=== PATIENT | male | born 1950 | race Caucasian/White ===

== ENCOUNTER → 2022-06-07 10:28 | Outpatient (CLI) | payer MEDICARE, OTHER, SELFPAY ==
--- NOTE | 2022-06-07 10:34 | DI.RAD.S_ITS ---
PROCEDURE: XR CERVICAL SPINE 4V OR 5V INDICATIONS: NECK PAIN TECHNIQUE: 5 views of the cervical spine acquired. COMPARISON: None. FINDINGS: Bones: No fractures or dislocations to the C7-T1 level. Straightening of the normal cervical lordosis, a finding which can be seen in the setting of muscle strain and/or spasm. 2 mm anterolisthesis C3 on C4, 2 mm retrolisthesis C5 on C6, likely degenerative. Moderate-severe multilevel disc height loss and endplate spurring, most pronounced at the mid-lower cervical spine. Facet degenerative changes also demonstrated. On oblique images, there are multiple levels of mild bony neural foraminal narrowing. Soft tissues: No prevertebral soft tissue swelling. IMPRESSION: Moderate-severe multilevel degenerative changes of the cervical spine. Dictated by: Tommy Rangel M.D. on 06/07/2022 at 14:07 Approved by: Tommy Rangel M.D. on 06/07/2022 at 14:13
== END ==
PROVIDERS: PCP Nurse Practitioner Family; Referring Provider Physical Medicine & Rehabilitation; Visit Provider Physical Medicine & Rehabilitation
DX: M47.22 Other spondylosis with radiculopathy, cervical region (principal); M54.2 Cervicalgia; G62.9 Polyneuropathy, unspecified; M17.12 Unilateral primary osteoarthritis, left knee; Z96.651 Presence of right artificial knee joint
CPT/HCPCS: 72050; 99214

== ENCOUNTER → 2022-07-25 11:01 | Outpatient (CLI) | payer MEDICARE, OTHER, SELFPAY ==
[2022-07-25 12:26] LABS: COVID19 -Nasal RAPID Negative (Negative)
== END ==
PROVIDERS: PCP Nurse Practitioner Family; Visit Provider Physical Medicine & Rehabilitation
DX: Z20.822 Contact with and (suspected) exposure to COVID-19 (principal)
CPT/HCPCS: 87635; C9803

== ENCOUNTER → 2022-09-06 08:29 | Outpatient (CLI) | payer MEDICARE, OTHER, SELFPAY ==
[2022-09-06 10:31] LABS: Add Manual Diff / Slide Review NO; Basophils Absolute Auto 0 /uL (0-100); Basophils Percent Auto 0.5 % (0-2); Eosinophils Absolute Auto 200 /uL (0-450); Eosinophils Percent Auto 2.9 % (2-4); Hematocrit 43.6 % (41-53); Hemoglobin 14.4 g/dL (13.5-17.5); Lymphocytes Absolute Auto 1500 /uL (1100-4500); Lymphocytes Percent Auto 26.9 % (25-40); Mean Corpuscular HGB Conc 33.1 % (30-36); Mean Corpuscular Hemoglobin 33.7 PG (26-34); Mean Corpuscular Volume 101.5 fL (80-100); Monocytes Absolute Auto 700 /uL (0-900); Neutrophils Absolute Auto 3100 /uL (1500-7000); Neutrophils Percent Auto 56.7 % (50-75); Platelet Count 211 X10^3/uL (150-400); Red Blood Cell Count 4.29 X10^6/uL (4.5-5.9); Red Cell Distribution Width 14.3 % (11.6-14.8); White Blood Cell Count 5.4 X10^3/uL (4.5-11.0)
[2022-09-06 11:19] LABS: Hemoglobin A1C% w Est Avg Glu 5.7 % (4.0-6.0)
[2022-09-06 11:37] LABS: BUN Creatinine Ratio 22.1 (6-22); Blood Urea Nitrogen 31 mg/dL (9-20); Calcium 9.3 mg/dL (8.4-10.2); Carbon Dioxide 26 mmol/L (22-32); Chloride 103 mmol/L (98-107); Estimated Glomerular Filt Rate 53 mL/min (>60); Glucose 93 mg/dL (80-110); HEMOLYSIS < 15 (0-50); Sodium 140 mmol/L (137-145)
== END ==
LOC: RESP 08:32 → LAB 08:33
PROVIDERS: PCP Nurse Practitioner Family; Referring Provider Orthopaedic Surgery; Visit Provider Orthopaedic Surgery
DX: Z01.818 Encounter for other preprocedural examination (principal); R73.9 Hyperglycemia, unspecified; Z01.812 Encounter for preprocedural laboratory examination
CPT/HCPCS: 36415; 80048; 83036; 85025

== ENCOUNTER 2022-09-13 08:01 | Day surgery (SDC) | payer MEDICARE, OTHER, SELFPAY ==
[2022-09-06 12:56] VITALS: BMI 36.6
[2022-09-13 08:32] VITALS: BMI 36.7
[2022-09-13 08:44] LABS: COVID19 -Nasal RAPID POSITIVE (Negative)
== END 2022-09-13 09:00 | disposition home or self-care (01) ==
LOC: OR 08:03 → AC 09:23 → OR 13:58
PROVIDERS: PCP Nurse Practitioner Family; Referring Provider Nurse Practitioner Family; Visit Provider Orthopaedic Surgery
DX: M17.12 Unilateral primary osteoarthritis, left knee (principal); Z53.09 Procedure and treatment not carried out because of other contraindication; U07.1 COVID-19
CPT/HCPCS: 27447; 87635; C9803

== ENCOUNTER → 2022-11-21 14:28 | Outpatient (CLI) | payer MEDICARE, OTHER, SELFPAY ==
[2022-11-21 15:21] LABS: Add Manual Diff / Slide Review NO; Basophils Absolute Auto 0 /uL (0-100); Basophils Percent Auto 0.5 % (0-2); Eosinophils Absolute Auto 100 /uL (0-450); Eosinophils Percent Auto 1.9 % (2-4); Hematocrit 44.3 % (41-53); Hemoglobin 14.4 g/dL (13.5-17.5); Lymphocytes Absolute Auto 1900 /uL (1100-4500); Lymphocytes Percent Auto 33.9 % (25-40); Mean Corpuscular HGB Conc 32.6 % (30-36); Mean Corpuscular Hemoglobin 33.2 PG (26-34); Mean Corpuscular Volume 101.8 fL (80-100); Monocytes Absolute Auto 700 /uL (0-900); Monocytes Percent Auto 12.1 % (3-14); Neutrophils Absolute Auto 2900 /uL (1500-7000); Neutrophils Percent Auto 51.6 % (50-75); Platelet Count 226 X10^3/uL (150-400); Red Blood Cell Count 4.35 X10^6/uL (4.5-5.9); Red Cell Distribution Width 14.6 % (11.6-14.8); White Blood Cell Count 5.7 X10^3/uL (4.5-11.0)
[2022-11-21 15:34] LABS: BUN Creatinine Ratio 17.2 (6-22); Blood Urea Nitrogen 27 mg/dL (9-20); Calcium 9.1 mg/dL (8.4-10.2); Carbon Dioxide 23 mmol/L (22-32); Chloride 105 mmol/L (98-107); Estimated Glomerular Filt Rate 46 mL/min (>60); Glucose 103 mg/dL (80-110); HEMOLYSIS < 15 (0-50); Potassium 4.4 mmol/L (3.4-5.1); Sodium 137 mmol/L (137-145)
== END ==
PROVIDERS: PCP Nurse Practitioner Family; Referring Provider Orthopaedic Surgery; Visit Provider Orthopaedic Surgery
DX: Z01.812 Encounter for preprocedural laboratory examination (principal); M25.562 Pain in left knee
CPT/HCPCS: 36415; 80048; 85025

== ENCOUNTER → 2022-12-04 09:59 | Outpatient (CLI) | payer MEDICARE, OTHER, SELFPAY ==
[2022-12-04 10:27] LABS: COVID19 -Nasal RAPID Negative (Negative)
== END ==
PROVIDERS: PCP Nurse Practitioner Family; Referring Provider Orthopaedic Surgery; Visit Provider Orthopaedic Surgery
DX: Z20.822 Contact with and (suspected) exposure to COVID-19 (principal)
CPT/HCPCS: 87635; C9803

== ENCOUNTER 2022-12-07 08:00 | Observation (INO) | payer MEDICARE, OTHER, SELFPAY ==
[2022-11-30 09:01] VITALS: BMI 37.7
[2022-12-06] VITALS (15 sets, daily range): BP systolic 106–174; BP diastolic 63–84; PULSE 47–64; RESP 9–20; TEMP 36–36.9; O2SAT 45–98; BMI 37.7
--- NOTE | 2022-12-06 08:24 | DI.RAD.S_ITS ---
PROCEDURE: XR KNEE LT 1TO2V INDICATIONS: post op total knee TECHNIQUE: 2 view(s) of the knee acquired. COMPARISON: [facility], , KNEE 1-2 VIEWS RIGHT, 03/05/2018, 15:53. FINDINGS: Bones: Patient is status post knee joint arthroplasty. Hardware components are in expected positions. Visualized bony structures are intact. Soft tissues: Overlying postoperative changes are noted. IMPRESSION: Expected immediate postoperative appearance, status post total left knee arthroplasty. Dictated by: Thor Huggins M.D. on 12/06/2022 at 16:59 Approved by: Thor Huggins M.D. on 12/06/2022 at 16:59
--- NOTE | 2022-12-06 10:42 | PM.PREOP ---
Pre-operative Note COVID-19 COVID-19 status: Negative Result date/Date tested (Pos, Neg/Pending): 12/04/22 Interval Note History & Physical reviewed/Exam performed by Physician: Yes Changes to H&P: No
--- NOTE | 2022-12-06 11:23 | SUR.PREOP ---
Dr Covington Notified in person of pt use of Nitro SL 4-5 days ago for chest pain which resolved. No current chest pain. Had not used previously for at least 6 months.
[2022-12-06] MEDS: PREGABALIN 75 MG CAPSULE PO (11:45)
[2022-12-06] MEDS: ACETAMINOPHEN 325 MG TABLET 975 MG PO (11:45)
[2022-12-06] MEDS: CELECOXIB 200 MG CAPSULE PO (11:45)
[2022-12-06] MEDS: LACTATED RINGERS 1,000 ML 84 ML IV ×2 (11:48→14:21)
[2022-12-06] MEDS: CEFAZOLIN 2 GM/100 ML PREMIX 100 ML IV ×2 (13:00→20:27)
[2022-12-06] MEDS: TRANEXAMIC ACID 1,000 MG VIAL 1000 MG INJ ×2 (13:10→14:10)
--- NOTE | 2022-12-06 13:25 | SUR.OPER ---
Supine on padded OR bed, head on pillow, arms secured on padded arm boards at <90 degrees abduction, legs uncrossed, safety belt at abdomen, tape over blanket over lower right leg. Left leg secured in [employer] positioner with foam padding and secured with coban
[2022-12-06] MEDS: BUPIVACAINE LIPOSOME 266 MG/20 ML VIAL INJ (13:35)
[2022-12-06] MEDS: MORPHINE 4 MG/ML INJ INJ (13:35)
[2022-12-06] MEDS: BUPIVACAINE 0.5% W/ EPI (PF) 30 ML VIAL INJ (13:36)
--- NOTE | 2022-12-06 14:38 | P.OP_ITS ---
Operative Date/Time/Diagnoses Date of procedure: 12/06/22 Time of procedure: 14:38 Pre-op diagnosis: Left knee osteoarthritis Post-op diagnosis: same Procedure & Clinicians Procedure: Left total knee replacement Same procedure as scheduled: Yes Indications: The patient has had progressively worsening left knee pain with radiographic changes consistent with arthritis. Non-operative management has failed and the patient has requested total knee replacement. The risks, benefits and alternatives to surgery were discussed with the patient prior to proceeding. Risks discussed included, but were not limited to, failure to relieve pain, stiffness, infection, nerve damage, deep venous thrombosis, pulmonary embolism, stroke, coma, heart attack, permanent paralysis and , as well as the potential need for eventual revision of the prosthetic. Division Order Technician: Stalin Williamson Click Yes if Unassisted: No Anesthesia Type: General, Spinal and Local Operative Notes Findings: Significant medial and moderate patellofemoral osteoarthritis with relative preservation of the lateral compartment. Closure Type: primary Specimen(s): none sent Prosthetic devices, grafts, tissues, transplants, or devices: Implants used in this procedure were manufactured by the [employer] and [employer] and included the BCS II Journey total knee replacement with a size 7 left Oxinium femoral component, size 6 left non porous tibial base plate with a 10 mm cross-linked polyethylene insert and a 35 mm oval Danae II patella Applied: implant(s) Estimated Blood Loss (mL): 25 Blood products transfused: none Tourniquet time (min): 50 Procedure in detail: The patient was seen in the pre-operative area, where the left knee was identified as the operative site and this was marked with my initials. The patient received pre-operative antibiotics, and was taken to the operating room and placed on the operative table in the supine position. After satisfactory anesthesia, a disc pad grinder out was performed. The left leg was encircled with a tourniquet about the proximal thigh, and the leg was prepared from the toes to the tourniquet with ChloroPrep in the usual fashion and draped through sterile drapes. The leg was elevated and exsanguinated with Eschmark bandage and the tourniquet inflated to 250 mmHg pressure. The knee was approached through an approximately 18 cm incision centered over the patella and carried into the knee through a medial parapatellar arthrotomy. The anterior osteophytes and soft tissues were removed. The rotational landmarks of Mcleod's line and the transepicondylar axis were marked on the femur with electrocautery, and intramedullary guide holes for the femur and tibia were created. The distal femoral cut was made in 6 degrees of valgus using the intramedullary guide at the primary cut setting. The proximal tibial cut was then made using the intramedullary guide, taking 9 mm of bone off the less involved side. The extension gap was checked and the rotation of the femoral component confirmed with the gap balancing blocks. The anterior, posterior and chamfer cuts were then made. The posterior osteophytes and soft tissues were then removed. The posterior capsule was injected with part of a mixture of 60 ml 0.25% Marcaine mixed with 20 ml Exparel and 4 mg of morphine for post-operative pain control. The remainder of this mixture was injected into the capsule and subcutaneous tissues during cement curing. The tibia was prepared with the rotation set by an extra medullary guide. Trial tibial and femoral components were then placed and the intercondylar notch cut through the femoral trial. Range of motion was 0-135 degrees, with good stability throughout the range. The patella was then cut to accommodate the patellar prosthetic. There was no need for a lateral release. The trials were then removed, and the femoral hole plugged with a bone plug. The bone was prepared with pulsatile lavage, and dried with a sponge. Cement was applied and the final prosthetics placed. Excess cement was removed during and after cement curing. After confirming there was no extruded cement posteriorly, the final tibial insert was placed. The knee was copiously irrigated and the tourniquet deflated. Hemostasis was obtained. The capsule was closed with interrupted # 2 polyester sutures. The subcutaneous layer was closed with 3-0 Vicryl, and the skin with a running 3-0 V-Lock suture and Dermabond. An Aquacel Ag dressing was applied and the patient was taken to recovery having tolerated the procedure well. The services of a skilled surgical supplies sterilizer were necessary in this procedure to provide positioning, exposure and retraction to prevent damage to vital structures. Without the services of Mr. Williamson, the surgery could not be perfo rmed in a safe, expedient manner. Complications: none Post-operative Condition: stable Disposition: PACU Plan for aftercare: The patient will be maintained on a standard total knee replacement protocol with weight bearing as tolerated. The patient will receive aspirin and sequential compression devices for DVT prophylaxis. The patient will be discharged home when safe for the home environment.
[2022-12-06] MEDS: GABAPENTIN 300 MG CAPSULE 600 MG PO ×2 (17:49→20:27)
[2022-12-06] MEDS: ACETAMINOPHEN 325 MG TABLET 650 MG PO ×2 (17:49→23:53)
[2022-12-06] MEDS: LACTATED RINGERS 1,000 ML 100 ML IV (18:29)
[2022-12-06] MEDS: AMLODIPINE 5 MG TABLET 2.5 MG PO (20:27)
[2022-12-06] MEDS: ASPIRIN EC 81 MG TABLET PO (20:27)
[2022-12-07 04:10] VITALS: BP 157/68; PULSE 62; RESP 19; TEMP 36.8; O2SAT 92
[2022-12-07] MEDS: CEFAZOLIN 2 GM/100 ML PREMIX 100 ML IV (04:45)
[2022-12-07] MEDS: ACETAMINOPHEN 325 MG TABLET 650 MG PO ×2 (05:40→12:07)
[2022-12-07 05:54] LABS: Hemoglobin 12.9 g/dL (13.5-17.5)
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
[2022-12-07 07:43] VITALS: BP 128/60; PULSE 64; RESP 18; TEMP 36.7; O2SAT 94
[2022-12-07] MEDS: DOCUSATE 100 MG CAPSULE PO (08:40)
[2022-12-07] MEDS: ASPIRIN EC 81 MG TABLET PO (08:41)
[2022-12-07] MEDS: GABAPENTIN 300 MG CAPSULE 600 MG PO ×2 (08:41→12:08)
[2022-12-07] MEDS: ATORVASTATIN 20 MG TABLET 40 MG PO (08:42)
[2022-12-07] MEDS: METHYLPHENIDATE 5 MG TABLET 20 MG PO (08:50)
[2022-12-07] MEDS: CYANOCOBALAMIN (VITAMIN B-12) 500 MCG TABLET 1000 MCG PO (08:50)
[2022-12-07 08:54] VITALS: BP 128/60
[2022-12-07] MEDS: METOPROLOL ER 25 MG TABLET PO (08:54)
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
--- NOTE | 2022-12-07 09:29 | CM.DANOTE ---
DCP: Case received EMR reviewed, this product development ecologist introduced self to patient was able to obtain information regarding pt's baseline activity prior to surgery, as well as current living situation. DCP's assessment completed with information currently available. Pt came to the hospital for a pre-planned surgery under the care of the orthopedic team. PCP: Jud Ydoer Payor: Medicare Pt had a preplanned Total Knee replacement on 12/06/2022, he has a history of Left Knee Osteoarthritis. He reports that he drives at baseline and that he did not use DME prior to surgery. Pt reports that he lives with his who will assist him at home on discharge. He states that he is set up with [facility] for care when discharged. P: Pt will discharge home with his today pending working with pt. Ana Gamble RN Case Manager Discharge Planning/Care Management CM Discharge Assessment Start: 12/07/22 09:24 Freq: Status: Active Protocol: Document 12/07/22 09:25 JS (Rec: 12/07/22 09:29 [id number]) Discharge Planning Assessment Assigned Ventilator Specialist Ana Gamble RN Case Manager Advance Directives? Yes Advance Directives on File No History Provided By Patient,Significant Other Has Patient been admitted in last 30 No days? Prior Living Arrangements House Household Members spouse Type of transporation used prior to Drives own vehicle admit Independent with ADL's Yes Is patient alert and oriented? Yes Caregiver for Another No Patient/Family Preference OP PT Therapy Comment Set up with [facility] Barriers to Discharge No Discharge Plan Home Transportation Arrangement to transport pt home Whiteboard Updated in Patient Room with Yes name and ext. # of Ventilator Specialist Review Status In Process Next Review Type Continued Stay Review Pre-Anesthesia Assessment Start: 11/30/22 09:01 Freq: Status: Active Protocol: Document 11/30/22 09:01 CAB (Rec: 11/30/22 09:27 CAB [id number]) Pre-Anesthesia Assessment Preferred Name Pat Patient Information Reviewed Via Phone Assessment Assessment Completed With Patient Diagnostic Results BMP/CMP,CBC,EKG Comment Labs @ [facility], Outside ECG scanned , COVID screen @ [facility] 12/04/22 Primary Care Provider Jud Yoder Seen Specialist in Last 12 Months Yes Specialist Seen Mineral Surveying Technician,Orthopedist Primary Language Azeri Transportation Technician Required No Height 177.8 cm Weight 119.295 kg Body Mass Index (BMI) 37.7 Hearing Ability Normal Visual Impairment No Limitations Visual Assist None Dentition Type Teeth, Natural Present,Teeth, Missing Barriers to Learning None Other Aids No Hx Anesthesia Reactions Yes: Complications w/ narcolepsy, I didn't almost wake up Hx Family Anesthesia Reaction No Hx Malignant Hyperthermia No Hx Blood Transfusions No Hx Blood Transfusion Reaction No Anesthesia Review Requested No alcohol intake never Smoking Status Former smoker how long ago did patient quit smoking Quit 25 years ago Substance Use Type does not use Pain Present Pain Reported Musculoskeletal Symptoms Abnormal Gait,Arthralgias,Back Pain,Difficulty Walking,Joint Pain,Myalgias,Neck Pain History of Falling (Recent or History of Yes ) Patient is completely paralyzed or No completely immobile Mental Status Oriented to own ability Is patient on oxygen? No Does patient have LYNN/SOB Yes: On occasion r/t COPD, Asthma Hx Sleep Apnea No Currently Taking a Beta Shalini Yes: Metoprolol Can You Climb a Flight of Stairs Without No SOB Hx Chest Pain Yes: I've been told it's muscle pain, not heart Hx SOB Yes: On occasion r/t COPD, Asthma Hx Syncope or Dizziness No Mineral Surveying Technician name Dr. Pace Cardiac Testing Yes Hx Pacemaker/ICD No Pacemaker Rep Required? No Diet Type At Home Regular,Low Sodium Dysphagia No Gastrointestinal Symptoms Reflux Urinary Catheter Present No Hx Urinary Self Catheterization No Diabetes No Hx Drug Resistant Organism No Presence of External or Internal Medical Yes: Stent, right knee, bilat Devices eye IOLs Have you had any close contact with No someone diagnosed with COVID-19? Received a COVID vaccine? Yes Received all doses? Yes Marital Status Lives With spouse Current Living Arrangements House Support System Spouse Does the Patient Have Assistance After Yes Surgery Patient Discharge Plan Description Return Home Comment Pt advised overnight length of stay per surgeon Additional comment Lives on [place] Fe[place] Safe in Current Environment Yes Been Physically Hurt or Threatened By a No Person in Current Environment Do you have thoughts of harming yourself None or others? Are you currently considering suicide? No Do you have a plan to hurt yourself or No Plan others? Do You Have Any Spiritual Beliefs That No May Affect Your HC Choices? Do You Have Any Cultural Practices That No May Affect Your HC Choices? Comment LDS Who Can We Speak to About Patient's Care Family, friends Identifying Code for Release of Patient Declines to issue Information Health Care Proxy/Next of Kin Andreia Samuel () Health Care Proxy Emergency Contact Name Andreia Samuel () Emergency Contact Advance Directives? Yes Advance Directives on File No Requested Patient Bring Advanced Yes Directives DOS Power of Inside Wireman Yes Power of Inside Wireman Name Andreia Samuel () Power of Inside Wireman PAC Instructions Durable medical equipment, Medications to take/avoid, Nasal antibiotic,No ETOH/ petroleum product on skin DOS, NPO,Pre-surgical wash,Sensory aids,Sturdy shoes/comfortable clothes,Do not bring valuables and remove jewelry
[2022-12-07] MEDS: OXYCODONE IR 10 MG TABLET PO ×2 (10:23→15:06)
[2022-12-07 10:41] VITALS: BP 130/66
[2022-12-07 12:15] VITALS: BP 165/86; PULSE 78; RESP 18; TEMP 36.8; O2SAT 96
--- NOTE | 2022-12-07 14:45 | PT.IPTN ---
Current Diagnoses Unilateral primary osteoarthritis, left knee (12/07/22) Presence of unspecified artificial knee joint (12/07/22) Surgery Performed Operation Date: 12/06/22 11:15 Actual Procedures p Total Knee Arthroplasty(Left) - Andreas Potter MD Physical Therapy Treatment Note M2 PT-IP Current Condition Start: 12/07/22 13:16 Freq: NEEDED Status: Discharge Protocol: Document 12/07/22 14:10 SP (Rec: 12/07/22 20:15 SP [id number]) Physical Therapy Current Condition Current Condition Evaluation Date 12/07/22 Treatment Diagnosis s/p L TKA; difficulty in walking Onset Date 12/06/22 M3 PT-IP Subjective Start: 12/07/22 13:16 Freq: NEEDED Status: Discharge Protocol: Document 12/07/22 14:10 SP (Rec: 12/07/22 20:15 SP [id number]) Subjective Physical Therapy Visit Type Type Initial Evaluation Visit Start Time 14:10 Visit Stop Time 14:45 Total Visit Minutes 35 Notes present and complete caregiver training, including donning gait belt and all physical needs in reach. VItals (hypertensive, notified nursing concern): Seated in chair rested: RUE automated x3 total: BP 178 /89 HR 67, BP 174/86, RUE 183/ 96, L forearm 173/83. Nursing stated ok to mobilize. Number of EDUCATION FACULTY MEMBER Visits 1 Physical Therapy Visit Comments Patient Comments agreeable to do PT Patient Goals return home with spouse this afternooon, early evening ferry. Therapy Pain Assessment Pain When Pain Assessed During Mobility Pain Present Pain Present Pain Reported Location Left Knee Intensity 6 Scale Used with mobility Description With Movement Pain Behaviors Facial Grimacing Pain Management Techniques Distraction,Elevation, Modification of Treatment,Re- positioning,Timing of Activity with Medications M4 PT-IP Mobility and Gait Start: 12/07/22 13:16 Freq: NEEDED Status: Discharge Protocol: Document 12/07/22 14:10 SP (Rec: 12/07/22 20:15 SP [id number]) PT-Bed Mobility Assessment Supine to Sit Supine to Sit Standby Assistance Sit to Supine Sit to Supine Standby Assistance Scooting Scooting to Edge of Bed Independent PT-Transfer Assessment Sit to and From Stand Sit to and from Stand Contact Guard Assistance, Minimal Assistance,1 Person Assistance,Use of Upper Extremities Equipment Transfer Assistive Device Gait Belt,Front Wheeled Walker Orthotic/Prosthetic Devices or Brace: No Transfers Transfer Destination Bed,Chair Transfer Technique pt ambulated using fww Transfer Ability Level of Assist Contact Guard Assistance, Minimal Assistance,1 Person Assistance,Use of Upper Extremities Comments Mobility Comments Pt was up in chair when arrived wanted to mobilize in room. donned gait belt. STS cues push from chair arms, full stand w/FWW CG-5%A, cued quad facilitation and hip hinge forward, ed try not use the back legs on chair for safe, some chairs scoot back ( inpt locked), Gait around room step to patterning, cued quad facilitation, upright posturing to improve foot clearance and stride DF/knee flexion swing through for normalizing gait. Improved post cues. Pt Mod BUE WB on FWW, at times scoots FWW quickly and starts to tip. Cued safety posturing and safety transition pivots, contact FWW and cued pt slower pacing forward/turns around end bed and pivot back fully to chair CGA. Sit EOB, cued reach back sit, Completed sit<>supine 10% A LLE into bed. Instructed no pillows under L knee to allow extension ROM. COmpleted post op ex: AP, quad set, heel slide approx 80d eg AROM, unable SLR. Pt returned to sitting EOB SBA and SPT w/ FWW back to chair CGA. Pt is ok return home with assist when medically cleared. Suggested use of urinal at night for not safety without BSC and both agreed. Pt is already set up with outpt therapy next week. Gait Assessment Gait Gait Assistance Required: Contact Guard Assist,Minimum Assistance,1 Person Assist Distance (Feet) 30 Able to Maintain Weight Bearing Status Yes During Gait Assistive Devices Assistive Device Gait Belt,Front Wheeled Walker Orthotic/Prosthetic Devices or Brace: No Gait Deviations General Gait Pattern Antalgic,Decreased Stride Length,Decreased Feet Clearance,Flexed Trunk,Step-to Gait Factors Limiting Gait Function Factors Limiting Gait Function Decreased Activity Tolerance, Decreased Strength,Limited Range of Motion,Pain,Poor Balance,Poor Safety Awareness Comments Gait Comments see mobility comments Stair Climbing Assessment Comments Stair Climbing Comments no stairs need to assess PT-Balance Assessment Sitting Balance and Reactions Static Sitting Balance Ability Normal Dynamic Sitting Balance Ability Good Standing Balance and Reactions Static Standing Balance Ability Good Dynamic Standing Balance Ability Fair Device Used FWW M5 PT-IP Objective Assessments Start: 12/07/22 13:16 Freq: NEEDED Status: Discharge Protocol: Document 12/07/22 09:25 AB (Rec: 12/07/22 13:53 AB [id number]) Orientation Orientation/Cognition Level of Alertness Alert Orientation Name,Situation Language Function Ability No Deficits Noted Safety Awareness Decreased Safety Awareness Memory Description No Deficits Noted Gross Range of Motion Lower Extremity ROM Assessment Left Impaired Impairments L knee flexion: ~ 30 deg Strength Lower Extremity Strength Assessment Left Impaired Hip 3+/5 Knee 3+/5 Sensation Assessment Sensation Gross Sensation WNL Muscle Tone Muscle Tone WNL Yes M6 PT-IP Treatment Start: 12/07/22 13:16 Freq: NEEDED Status: Discharge Protocol: Document 12/07/22 14:10 SP (Rec: 12/07/22 20:15 SP [id number]) Physical Therapy Treatment Exercises Exercises Ankle Pumps,Quad Sets,Heel Slides,Passive Knee Extension Hang,Seated Knee Flexion/ Extension Knee ROM Measurement 80 deg L knee AROM, cued slow and not >90 deg Education Education Provided Precautions,Weight Bearing Status,Post-Op Packet,Safety Other Treatments Other Treatment Performed In standing wt shift then january pre gait mobility. M7 PT-IP Assessment and Plan Start: 12/07/22 13:16 Freq: NEEDED Status: Discharge Protocol: Document 12/07/22 14:10 SP (Rec: 12/07/22 20:15 SP [id number]) PT Summary Assessment and Plan Potential Rehabilitation Potential Fair Status of Condition at Evaluation Evolving Summary Impairments Pain,ROM,Strength,Balance, Coordination,Sensation,Tone, Cognition,Bed Mobility, Transfers,Gait,Activity Tolerance Progress Towards Goals Progressing Toward Goals,Slow Progress due to Pain,Slow Progress due to Activity Tolerance Assessment Summary Pt hypertensive, see vitals, notified nursing. SBA bed mob, CG- 5%A during gait w/ FWW, cues proper form L knee flexion and tall posturing, tends to be impulsive pivoting FWW CGA for safety, improve post cues. Pt is ok to return home with 11/06 assist when medically cleared, set up with outpt therapy. Goals Bed Mobility Goal Independent Transfer Goal Independent,Front Wheeled Walker Gait Goal Independent,Front Wheel Walker Gait Distance 150 Days to Meet Goals 5 Frequency of Treatment Frequency Of Treatment Twice a Day Treatment Plan Physical Therapy Treatment Plan Bed Mobility Training,Transfer Training,Gait Training, Therapeutic Exercise,Balance Retraining,Post Op Education, Discharge Planning,Hot or Cold Pack,Neuromuscular Re-ed, Coordination Retraining,Manual Therapy Other Recommendations and Next Treatment Postop ex, recheck ROM, Focus tranfers, gait w/ FWW, balance activities. Weight Bearing Status Weight Bearing Status Weight Bear as Tolerated Allowed Weight Bearing Amount (enter % LLE WBAT or #) (%) Recommendations To Nursing Amount of Assist Needed 1 Person Assist Discharge Recommendations PT Discharge Recommendations Home with 11/06 Assist Available,Outpatient PT Transportation Needs at Discharge Private Vehicle
--- NOTE | 2022-12-07 15:50 | PC.NURSE ---
Pt in satisfactory post op status Med for discomfort per request w/ good relief. Orders for D/C Home instructions given HL D/C'd Pt escorted by staff via W/C to waiting vehicle D/C in stable post op status.
== END 2022-12-07 15:40 | disposition home or self-care (01) ==
LOC: OR 10:33 → AC 10:33
PROVIDERS: Admitting Provider Orthopaedic Surgery; PCP Nurse Practitioner Family; Referring Provider Orthopaedic Surgery; Visit Provider Orthopaedic Surgery
PROC: 0SRD0JZ Replacement of Left Knee Joint with Synthetic Substitute, Open Approach (ICD-10-PCS; CPT 27447; principal; 2022-12-06 11:15)
DX: M17.12 Unilateral primary osteoarthritis, left knee (principal)
CPT/HCPCS: 27447; 36415; 73560; 85014; 85018; 97110; 97162; 97530; C1776; G0378; C1713; C9290; J0690; J1100; J2250; J2270; J2405; J2704; J3010

== ENCOUNTER → 2023-06-08 12:08 | Outpatient (CLI) | payer MEDICARE, OTHER, SELFPAY ==
[2022-12-06 09:18] VITALS: BMI 37.7
[2023-06-08 13:12] LABS: Add Manual Diff / Slide Review NO; Basophils Absolute Auto 0 /uL (0-100); Basophils Percent Auto 0.4 % (0-2); Eosinophils Absolute Auto 100 /uL (0-450); Eosinophils Percent Auto 1.8 % (2-4); Hematocrit 40.8 % (41-53); Hemoglobin 13.9 g/dL (13.5-17.5); Lymphocytes Absolute Auto 1500 /uL (1100-4500); Lymphocytes Percent Auto 31.3 % (25-40); Mean Corpuscular Hemoglobin 34.5 PG (26-34); Mean Corpuscular Volume 101.5 fL (80-100); Monocytes Absolute Auto 500 /uL (0-900); Monocytes Percent Auto 10.1 % (3-14); Neutrophils Absolute Auto 2700 /uL (1500-7000); Neutrophils Percent Auto 56.4 % (50-75); Platelet Count 195 X10^3/uL (150-400); Red Blood Cell Count 4.02 X10^6/uL (4.5-5.9); Red Cell Distribution Width 14.4 % (11.6-14.8); White Blood Cell Count 4.8 X10^3/uL (4.5-11.0)
[2023-06-08 13:26] LABS: BUN Creatinine Ratio 23.3 (6-22); Blood Urea Nitrogen 34 mg/dL (9-20); Calcium 9.1 mg/dL (8.4-10.2); Carbon Dioxide 27 mmol/L (22-32); Chloride 106 mmol/L (98-107); Estimated Glomerular Filt Rate 50 mL/min (>60); Glucose 104 mg/dL (80-110); HEMOLYSIS < 15 (0-50); Potassium 4.5 mmol/L (3.4-5.1); Sodium 139 mmol/L (137-145)
== END ==
PROVIDERS: PCP Family Medicine; Referring Provider Orthopaedic Surgery Orthopaedic Surgery of the Spine; Visit Provider Orthopaedic Surgery Orthopaedic Surgery of the Spine
DX: I10 Essential (primary) hypertension (principal); G89.29 Other chronic pain; Z01.812 Encounter for preprocedural laboratory examination
CPT/HCPCS: 36415; 80048; 85025; 93005

== ENCOUNTER 2023-06-22 08:14 | Inpatient (IN) | payer MEDICARE, OTHER, SELFPAY ==
[2022-12-06 09:18] VITALS: BMI 37.7
[2023-06-19 13:32] VITALS: BMI 38.9
[2023-06-22] VITALS (12 sets, daily range): BP systolic 144–183; BP diastolic 78–94; PULSE 54–94; RESP 12–18; TEMP 36.1–36.9; O2SAT 93–99; BMI 38.9; BMI 39.6
--- NOTE | 2023-06-22 | DI.RAD.S_ITS ---
PROCEDURE: XR CERVICAL SPINE 2V OR 3V INDICATIONS: C4-5 C5-6 ACDF TECHNIQUE: 3 intraoperative low resolution fluoroscopic spot films obtained COMPARISON: [facility], , XR CERVICAL SPINE 4V OR 5V, 06/07/2022, 11:21. FINDINGS: Resolution intraoperative fluoroscopic spot films show some instrumented discectomy and fusion C4-5 and C5-6 as labeled on the films IMPRESSION: Fluoroscopic guidance Approved by: Watson Garcia M.D. on 06/22/2023 at 15:03
[2023-06-22] MEDS: LACTATED RINGERS 1,000 ML 42 ML IV (09:21)
--- NOTE | 2023-06-22 10:12 | PM.PREOP ---
Pre-operative Note COVID-19 Criteria for continued procedure: Expected advancement of disease process, Possibility delay results in more complex future surgery or treatment, Increased loss of function, Continuing or worsening of significant or severe pain, Deterioration of the patient's condition or overall health and Delay expected to result in less-positive ultimate med/surg outcome Interval Note History & Physical reviewed/Exam performed by Physician: Yes Changes to H&P: No
[2023-06-22] MEDS: CEFAZOLIN VIAL 3 GM in SODIUM CHLORIDE 0.9% 100 ML IV (11:00)
--- NOTE | 2023-06-22 11:12 | SUR.OPER ---
Supine on padded OR bed, head on pillow, arms padded on gel pads and papoosed, legs uncrossed, safety belt at thigh, tape over blanket over lower legs.
[2023-06-22] MEDS: BUPIVACAINE 0.25% W/ EPI (PF) 10 ML VIAL 30 ML INJ (11:32)
--- NOTE | 2023-06-22 12:43 | PM.OP.1 ---
Operative Date/Time/Diagnoses Date of procedure: 06/22/23 Time of procedure: 10:40 Pre-op diagnosis: 1. C4-5, C5-6 spinal stenosis 2. Cervical spondylosis with radiculopathy Post-op diagnosis: same Procedure & Clinicians Procedure: 1. C4-5, C5-6 anterior cervical diskectomy and fusion 2. C4-5, C5-6 anterior interbody cage placement 3. C4-5, C5-6 anterior instrumentation with plate and screw placement in C5-C6 and C7 vertebrae 4. Utilization of microsurgical technique and operating microscope Same procedure as scheduled: Yes Indications: Patient has been having chronic neck pain and worsening cervical radiculopathy. Patient failed multiple conservative management with worsening pain weakness and numbness in his upper extremity. Patient has been having difficulty performing activity of daily living. After discussing risks benefits of treatment options, patient elected proceed with surgery. Surgeon: Kirsten Burdick Brokerage Office Manager: Stalin Williamson Click Yes if Unassisted: No Anesthesia Type: General Operative Notes Closure Type: primary Specimen(s): none sent Prosthetic devices, grafts, tissues, transplants, or devices: Globus Extend Plate, Hedron C cages Estimated Blood Loss (mL): 5 Blood products transfused: none Procedure in detail: Patient was seen in the preoperative area. Risks and benefits of the surgery was discussed with the patient. Operative consent was obtained and placed in the chart. Patient was then taken to the operative room. Prophylactic antibiotic was given less than 0.5 hr prior to skin incision. General anesthesia was administered. Patient was placed into a supine position on her radiolucent table. Bilateral shoulders were taped down to allow proper C-arm imaging. Anterior cervical area was prepped and draped in a sterile fashion. Time-out was performed at this time. Using lateral C-arm imaging, the level between C4 and C6 was identified and marked on patient's neck. A oblique incision from midline towards medial border of sternocleidomastoid muscle was made. The platysma muscle was incised in line with skin incision. Metzenbaum scissor was used to develop the plane between the medial border of sternocleidomastoid d and the strap muscles medially. The carotid sheath and its contents were identified and protected behind the hand-held retractor during the entire case. The plane between the carotid sheath and strap muscles was developed with Metzenbaum scissors. Dissection was made down to the level of the anterior cervical fascia. Longus colli muscle was incised on the anterior aspect of vertebral bodies bilaterally from C4-6. Spinal needle was placed into the C5-6 disc space and confirmed with lateral C-arm imaging. Using microsurgical technique and operative microscope, anterior cervical diskectomy was performed at C4-5, C5-6 level. This was done by removing the disc material, removing the anterior and posterior osteophytes posterior longitudinal ligaments along with performing bilateral foraminotomies at both levels. Patient was found to have severe central and foraminal stenosis at both levels. Patient's stenosis was fully decompressed after decompression was completed. After the diskectomy was completed, 2 anterior interbody cages were obtained. The cages were packed with DBM bone grafting material. One cage each along with the bone grafting material was then packed into the interbody spaces from C4-C6 with one cage into each interbody level. After the cages were placed, the anterior cervical plate was stabilized to the C4-6 vertebrae using 2 screws at each each level. Total 6 screws were placed. After confirming placement of the hardware with AP and lateral C-arm imaging, the screws were locked into the plate using the locking mechanism and torque limiting screwdriver. After the hardware was placed and confirmed with AP and lateral C-arm imaging, the wound was irrigated with sterile normal saline. The platysma muscle and the subcutaneous tissue was closed with 2-0 Vicryl. The skin was closed with 4-0 Monocryl and Steri-Strips. Patient tolerated the procedure well. Patient was transferred recovery room in stable condition. There were no complications. The Operation could not have been safely performed without compromising the technical result or length of the procedure, without the assistance of a skilled volunteer services assistant. The volunteer services assistant was medically necessary for proper positioning, retraction and manipulation of instruments, proper exposure, surgical preparation, and manipulation of tissue. Complications: none Post-operative Condition: stable Disposition: PACU Plan for aftercare: Admit to inpatient hospital
[2023-06-22] MEDS: HYDROMORPHONE 2 MG INJ IV ×2 (13:08→13:16)
[2023-06-22] MEDS: ACETAMINOPHEN 325 MG TABLET 650 MG PO ×2 (15:43→20:43)
[2023-06-22] MEDS: LACTATED RINGERS 1,000 ML 125 ML IV (15:43)
[2023-06-22] MEDS: METHYLPHENIDATE 5 MG TABLET 20 MG PO (15:43)
--- NOTE | 2023-06-22 15:43 | PT-IP ANOTE ---
PT checks on pt for day of surgery evaluation and pt is sleeping and too lethargic to participate per nsg and PT assessment. Will con't efforts next date.
[2023-06-22] MEDS: GABAPENTIN 300 MG CAPSULE 600 MG PO ×2 (18:19→20:40)
[2023-06-22] MEDS: CEFAZOLIN 2 GM/100 ML PREMIX 100 ML IV (18:37)
[2023-06-22] MEDS: AMLODIPINE 5 MG TABLET 2.5 MG PO (20:38)
[2023-06-23 02:42] VITALS: BP 153/77; PULSE 69; RESP 20; TEMP 36.5; O2SAT 96
[2023-06-23] MEDS: CEFAZOLIN 2 GM/100 ML PREMIX 100 ML IV (02:51)
[2023-06-23] MEDS: ACETAMINOPHEN 325 MG TABLET 650 MG PO ×2 (02:55→08:51)
[2023-06-23] MEDS: LACTATED RINGERS 1,000 ML 125 ML IV (04:31)
[2023-06-23] MEDS: PANTOPRAZOLE DR 20 MG TABLET PO (05:46)
[2023-06-23 08:13] VITALS: BP 172/84; PULSE 71; RESP 17; TEMP 36.6; O2SAT 98
[2023-06-23 08:19] VITALS: BP 172/84; PULSE 71
[2023-06-23] MEDS: CYANOCOBALAMIN (VITAMIN B-12) 500 MCG TABLET 1000 MCG PO (08:19)
[2023-06-23] MEDS: METOPROLOL ER 25 MG TABLET PO (08:19)
[2023-06-23] MEDS: ATORVASTATIN 20 MG TABLET 40 MG PO (08:19)
[2023-06-23] MEDS: GABAPENTIN 300 MG CAPSULE 600 MG PO (08:19)
[2023-06-23] MEDS: METHYLPHENIDATE 5 MG TABLET 20 MG PO (08:51)
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
== END 2023-06-23 11:43 | disposition home or self-care (01) | DRG 473 ==
PROVIDERS: Admitting Provider Orthopaedic Surgery Orthopaedic Surgery of the Spine; PCP Family Medicine; Referring Provider Orthopaedic Surgery Orthopaedic Surgery of the Spine; Visit Provider Orthopaedic Surgery Orthopaedic Surgery of the Spine
PROC: 0RG20A0 Fusion of 2 or more Cervical Vertebral Joints with Interbody Fusion Device, Anterior Approach, Anterior Column, Open Approach (ICD-10-PCS; principal; 2023-06-22 10:15)
DX: M48.02 Spinal stenosis, cervical region (principal); M47.22 Other spondylosis with radiculopathy, cervical region; F17.210 Nicotine dependence, cigarettes, uncomplicated; J45.909 Unspecified asthma, uncomplicated; I10 Essential (primary) hypertension; E78.5 Hyperlipidemia, unspecified; K21.9 Gastro-esophageal reflux disease without esophagitis
CPT/HCPCS: 72040; 76000; 97161; C1713; J0330; J0690; J1100; J1170; J2405; J2704; J3010

== ENCOUNTER 2024-04-02 07:17 | Day surgery (SDC) | payer MEDICARE, OTHER, SELFPAY ==
[2023-06-22 13:48] VITALS: BMI 39.6
[2024-03-27 09:56] VITALS: BMI 40.1
[2024-04-02] VITALS (11 sets, daily range): BP systolic 96–163; BP diastolic 42–94; PULSE 54–85; RESP 12–20; TEMP 36.1–36.9; O2SAT 92–98; BMI 39.0
[2024-04-02] MEDS: CEFAZOLIN VIAL 3 GM in SODIUM CHLORIDE 0.9% 100 ML IV (08:00)
--- NOTE | 2024-04-02 08:39 | PM.PREOP ---
Pre-operative Note Interval Note History & Physical reviewed/Exam performed by Physician: Yes Changes to H&P: No
--- NOTE | 2024-04-02 09:21 | DI.RAD.S_ITS ---
PROCEDURE: XR LUMBAR SPINE 2-3V INDICATIONS: L5-S1 MICRODISCECTOMY TECHNIQUE: 2 intraoperative fluoroscopic views of the lumbar spine were acquired. COMPARISON: None. FINDINGS: Intraoperative fluoroscopic images shows surgical instrument placed posteriorly at L5-S1 level. IMPRESSION: Fluoro guidance was provided intraoperatively for L5-S1 micro discectomy performed by the ordering physician. Dictated by: Adalid Araya M.D. on 04/02/2024 at 17:18 Approved by: Adalid Araya M.D. on 04/02/2024 at 17:19
[2024-04-02] MEDS: BUPIVACAINE 0.25% (PF) 30 ML, EPINEPHrine 0.15 MG INJ (09:33)
--- NOTE | 2024-04-02 09:50 | PM.OP.1 ---
Operative Date/Time/Diagnoses Date of procedure: 04/02/24 Time of procedure: 08:40 Pre-op diagnosis: 1. L5-S1 left disc herniation 2. Lumbar radiculopathy Post-op diagnosis: same Procedure & Clinicians Procedure: 1. L5-S1 left microdiscectomy 2. Utilization of microsurgical technique and operating microscope Same procedure as scheduled: Yes Indications: Patient has been having chronic back pain and worsening lumbar radiculopathy. Patient was found have a left L5-S1 disc herniation with caudal migration causing left S1 nerve root impingement correlating with his symptoms. Patient failed multiple conservative management with worsening pain weakness and numbness in his lower extremity. Patient has been having difficulty performing activity of daily living. After discussing risks benefits of treatment options, patient elected proceed with surgery. Surgeon: Kirsten Burdick Preschool Disability Teacher: Shante Pineda Click Yes if Unassisted: No Anesthesia Type: General Operative Notes Closure Type: primary Specimen(s): none sent Estimated Blood Loss (mL): 5 Blood products transfused: none Procedure in detail: Patient was seen in the preoperative area. Risks and benefits of the surgery was discussed with the patient. Informed consent was obtained from the patient and placed in the chart. Surgical site was marked. Patient was taken to the operative room. General anesthesia was administered. Prophylactic antibiotic was given to the patient less than 30 min before the incision was made. Patient was placed into a prone position on the Ashish table. Patient's back was then prepped and draped in the sterile fashion. Time-out was performed at this time. Using AP and lateral C-arm imaging the interval between L5-S1 was identified and marked on patient's back. A 1 inch incision 1 in from midline was made on the left side. The fascia was incised in line with skin incision. Globus MARS retractors was placed inside the incision and docked onto the L5 lamina. Using microsurgical technique and operating microscope, a L5 laminotomy was performed using a Kerrison rongeur. Liagamentum flavum was resected at the site of the laminotomy. The disc space at L5-S1 was identified. Microdiscectomy was performed by incising the annulus with #11 blade. Microcurettes and pituitary was used to removed herniated disc fragments of disc from the epidural space. Patient was also found to have significant amount of epidural lipomatosis. The epidural lipomatosis was resected using pituitary and Kerrison rongeur to further decompress the epidural space. After the microdiskectomy was completed, the area medial lateral superior and inferior to the area of the microdiskectomy was inspected and explored using a micro curette. No other impinging structure was identified. The wound was then irrigated with sterile normal saline. 40 mg Depo-Medrol was placed into the epidural space. The deep fascia was closed with 1-0 Vicryl. The subcutaneous tissue was closed with 2-0 Vicryl. The skin was closed with 4-0 Monocryl. Patient tolerated the procedure well. There were no complications. Patient was transferred recovery room in stable condition. Complications: none Post-operative Condition: stable Disposition: PACU Plan for aftercare: Discharge to home
== END 2024-04-02 11:05 | disposition home or self-care (01) ==
PROVIDERS: PCP Family Medicine; Referring Provider Physician Assistant; Visit Provider Orthopaedic Surgery Orthopaedic Surgery of the Spine
PROC: (CPT 63030; principal; 2024-04-02 08:45)
DX: M51.26 Other intervertebral disc displacement, lumbar region (principal); M54.16 Radiculopathy, lumbar region
CPT/HCPCS: 63030; 72100; 76000; J0171; J0690; J1100; J2250; J2405; J2704; J2919; J3010; J3490

== ENCOUNTER → 2024-04-17 15:06 | Outpatient (CLI) | payer MEDICARE, OTHER, SELFPAY ==
[2023-06-22 13:48] VITALS: BMI 39.6
--- NOTE | 2024-04-17 15:08 | DI.US.S_ITS ---
PROCEDURE: US PERIPH VENOUS LOW EXTREM LT INDICATIONS: Pain in left lower leg TECHNIQUE: Real-time imaging, as well as color and pulse Doppler interrogation, were performed of the lower extremity deep veins from the inguinal ligament to the popliteal fossa, with documentation of the visualized calf veins. COMPARISON: None. FINDINGS: The common femoral, femoral, popliteal, and the visualized calf veins are normally compressible, and free of intraluminal thrombus. Color and pulse Doppler demonstrate normal phasic intraluminal flow. There is normal augmentation response to distal compression maneuver. IMPRESSION: No findings of lower extremity deep venous thrombosis. Dictated by: Pilo Wild M.D. on 04/17/2024 at 18:31 Approved by: Pilo Wild M.D. on 04/17/2024 at 18:31
== END ==
PROVIDERS: PCP Family Medicine; Referring Provider Physician Assistant; Visit Provider Physician Assistant
DX: M79.662 Pain in left lower leg (principal)
CPT/HCPCS: 93971

== ENCOUNTER → 2024-06-17 14:09 | Outpatient (CLI) | payer MEDICARE, OTHER, SELFPAY ==
[2023-06-22 13:48] VITALS: BMI 39.6
[2024-06-17 15:23] LABS: BUN Creatinine Ratio 19.9 (6-22); Blood Urea Nitrogen 32 mg/dL (9-20); Calcium 9.1 mg/dL (8.4-10.2); Carbon Dioxide 26 mmol/L (22-32); Chloride 109 mmol/L (98-107); Estimated Glomerular Filt Rate 44 mL/min (>60); Glucose 115 mg/dL (80-110); HEMOLYSIS < 15 (0-50); Potassium 4.3 mmol/L (3.4-5.1); Sodium 142 mmol/L (137-145)
== END ==
PROVIDERS: PCP Family Medicine; Referring Provider Internal Medicine; Visit Provider Internal Medicine
DX: I10 Essential (primary) hypertension (principal)
CPT/HCPCS: 36415; 80048

== ENCOUNTER 2025-04-24 16:55 | Emergency (ER) | payer OTHER, SELFPAY ==
[2023-06-22 13:48] VITALS: BMI 39.6
--- NOTE | 2025-04-24 17:46 | DI.US.S_ITS ---
PROCEDURE: US PERIP VENOUS LOW EXTREM LT INDICATIONS: LLE DVT concern TECHNIQUE: Real-time imaging, as well as color and pulse Doppler interrogation, were performed of the lower extremity deep veins from the inguinal ligament to the popliteal fossa, with documentation of the visualized calf veins. COMPARISON: [facility], , [place] [facility] VENOUS LOW EXTREM LT, 04/17/2024, 16:06. FINDINGS: The common femoral, femoral, popliteal, and the visualized calf veins are normally compressible, and free of intraluminal thrombus. Color and pulse Doppler demonstrate normal phasic intraluminal flow. There is normal augmentation response to distal compression maneuver. Superficial varicose vein is seen at the anterior left lower leg without thrombus. Mild subcutaneous edema. IMPRESSION: No findings of lower extremity deep venous thrombosis. Approved by: Tommy Dean M.D. on 04/24/2025 at 19:33
[2025-04-24 18:02] VITALS: BP 140/75; PULSE 69; RESP 20; TEMP 36.6; O2SAT 99; BMI 39.4
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
[2025-04-24 18:33] VITALS: PULSE 76
[2025-04-24 20:30] VITALS: BP 132/78; PULSE 56; RESP 16; O2SAT 95
== END 2025-04-24 20:30 | disposition home or self-care (01) ==
PROVIDERS: Emergency Provider Emergency Medicine; PCP Family Medicine
DX: M79.89 Other specified soft tissue disorders (principal)
CPT/HCPCS: 93971; 99281; 99283